=== PATIENT | female | born 1990 | race Caucasian/White ===

== ENCOUNTER 2018-02-05 22:25 | Emergency (ER) | payer OTHER ==
[~2018-02-05] VITALS: Ht 165.1 cm; Wt 63.9 kg
[2018-02-05] MEDS ORDERED: KETOROLAC 30 MG/1 ML IM ONE (23:00)
[2018-02-05] MEDS ORDERED: ZIPRASIDONE 20 MG INJ IM ONE ×3 (23:00→23:16)
[2018-02-05] MEDS ORDERED: KETOROLAC 30 MG/1 ML ONE (23:09)
[2018-02-05 23:24] VITALS: BP 126/88
== END 2018-02-05 23:24 | disposition home or self-care (01) ==
LOC: ED 23:02
DX: R10.84 Generalized abdominal pain (principal); G89.29 Other chronic pain; R11.0 Nausea; Z90.49 Acquired absence of other specified parts of digestive tract
CPT/HCPCS: 96372; 99284; J1885; J3486